=== PATIENT | male | born 1940 | race Caucasian/White ===

== ENCOUNTER 2016-09-28 01:44 | Emergency (ER) | payer MEDICARE ==
[2016-09-28 02:04] LABS: AUTOMATED NEUTROPHIL # 5.4 TH/MM3 (1.8-7.7); BASOPHIL # 0.1 TH/MM3 (0-0.2); BASOPHIL % 0.9 % (0.0-2.0); EOSINOPHIL # 0.2 TH/MM3 (0-0.4); EOSINOPHIL % 2.3 % (0.0-4.0); HEMATOCRIT 39.6 % (39.0-51.0); HEMO FLAGS DIFF FINAL; LYMPH % 17.3 % (9.0-44.0); LYMPHOCYTE # 1.3 TH/MM3 (1.0-4.8); MEAN CORPUSCULAR HGB CONC 33.7 % (32.0-36.0); MONO % 8.7 % (0.0-8.0); NEUT % 70.8 % (16.0-70.0); PLATELET COUNT 229 TH/MM3 (150-450); RED BLOOD COUNT 4.45 MIL/MM3 (4.50-5.90); RED CELL DISTRIBUTION WIDTH 14.7 % (11.6-17.2); WHITE BLOOD COUNT 7.6 TH/MM3 (4.0-11.0)
[2016-09-28 02:08] LABS: I-STAT POTASSIUM 3.6 MMOL/L (3.5-4.9)
--- NOTE | 2016-09-28 02:11 | RADRPT ---
EXAM DATE/TIME: 09/28/2016 01:38 [facility] COMPARISON: No previous studies available for comparison. INDICATIONS : Trauma alert. Patient woke up floor. Syncope. MEDICAL HISTORY : Unobtainable SURGICAL HISTORY : Unobtainable ENCOUNTER: Initial ACUITY: 1 day PAIN SCORE: Non-responsive. LOCATION: Bilateral chest FINDINGS: A single view of the chest demonstrates interstitial changes in the upper lungs. No confluent infiltr ate. Accounting for technique, heart size is upper limits of normal. Osseous structures are grossly i ntact although the lateral ribs in the left hemithorax are not included. CONCLUSION: 1. Interstitial changes in the apices are probably chronic. 2. No acute infiltrate or obvious fracture on this limited exam. Brando Carmichael MD on September 28, 2016 at 2:08 Board Certified Radiologist. This report was verified electronically.
--- NOTE | 2016-09-28 02:11 | RADRPT ---
EXAM DATE/TIME: 09/28/2016 01:38 [facility] COMPARISON: No previous studies available for comparison. INDICATIONS : Trauma alert. Patient woke up floor. Syncope. MEDICAL HISTORY : Unobtainable SURGICAL HISTORY : Unobtainable ENCOUNTER: Initial ACUITY: 1 day PAIN SCORE: Non-responsive. LOCATION: Left knee FINDINGS: Two view examination of the left knee demonstrates no evidence of fracture or dislocation. Bony mine ralization is normal. The suprapatellar soft tissues have a normal configuration. Atherosclerotic ca lcification of the regional vasculature. CONCLUSION: No acute fracture or effusion. Brando Carmichael MD on September 28, 2016 at 2:09 Board Certified Radiologist. This report was verified electronically.
--- NOTE | 2016-09-28 02:13 | RADRPT ---
EXAM DATE/TIME: 09/28/2016 01:38 [facility] COMPARISON: No previous studies available for comparison. INDICATIONS : Trauma alert. Patient woke up floor. Syncope. MEDICAL HISTORY : Unobtainable SURGICAL HISTORY : Unobtainable ENCOUNTER: Initial ACUITY: 1 day PAIN SCORE: Non-responsive. LOCATION: Bilateral pelvis FINDINGS: A single frontal view of the pelvis demonstrates no evidence of fracture. The bony pelvic ring is in tact. Bony mineralization is normal. The soft tissues are intact. Iliac stents bilaterally. CONCLUSION: No acute fracture. Brando Carmichael MD on September 28, 2016 at 2:10 Board Certified Radiologist. This report was verified electronically.
--- NOTE | 2016-09-28 02:15 | RADRPT ---
EXAM DATE/TIME: 09/28/2016 02:01 [facility] COMPARISON: No previous studies available for comparison. INDICATIONS : Trauma alert, unwitness fall. Found on ground RADIATION DOSE: 37.70 CTDIvol (mGy) MEDICAL HISTORY : unknown SURGICAL HISTORY : unknown ENCOUNTER: Initial ACUITY: 1 day PAIN SCALE: 0/10 LOCATION: cranial TECHNIQUE: Multiple contiguous axial images were obtained of the head. Using automated exposure control and adj ustment of the mA and/or kV according to patient size, radiation dose was kept as low as reasonably a chievable to obtain optimal diagnostic quality images. FINDINGS: CEREBRUM: The ventricles are normal for age. Symmetric, diffuse cortical atrophy. No evidence of midline shift , mass lesion, hemorrhage or acute infarction. No extra-axial fluid collections are seen. POSTERIOR FOSSA: The cerebellum and brainstem are intact. The 4th ventricle is midline. The cerebellopontine angle i s unremarkable. EXTRACRANIAL: The visualized portion of the orbits is intact. Mild chronic sinusitis of the ethmoid air cells SKULL: The calvaria is intact. No evidence of skull fracture. CONCLUSION: 1. Mild, diffuse cortical atrophy with no acute intracranial process, trauma or fracture. 2. Mild, chronic ethmoid sinusitis Brando Carmichael MD on September 28, 2016 at 2:12 Board Certified Radiologist. This report was verified electronically.
--- NOTE | 2016-09-28 02:20 | RADRPT ---
EXAM DATE/TIME: 09/28/2016 02:01 [facility] COMPARISON: No previous studies available for comparison. INDICATIONS : Trauma alert, unwitness fall. Found on ground RADIATION DOSE: 21.57 CTDIvol (mGy) MEDICAL HISTORY : unknown SURGICAL HISTORY : unknown ENCOUNTER: Initial ACUITY: 1 day PAIN SCALE: 0/10 LOCATION: neck TECHNIQUE: Volumetric scanning of the cervical spine was performed. Multiplanar reconstructions in the sagittal, coronal and oblique axial planes were performed. Using automated exposure control and adjustment o f the mA and/or kV according to patient size, radiation dose was kept as low as reasonably achievable to obtain optimal diagnostic quality images. FINDINGS: Sagittal and coronal reconstruction show multilevel degenerative disc disease with reversal of the lo rdotic curvature and loss of disc height at every cervical level. Uncovertebral ridging is most promi nent at C4-5 anteriorly. Minimal grade 1 retrolisthesis of C4 on 5. No fracture. Fibrotic changes wit h some pleural calcification in the apices. Detailed axial images are as follows: . C2-C3: Facet hypertrophy bilaterally, left greater than right. Narrowing of the neural foramina with possibl e compromise of the exiting C3 nerve roots.. C3-C4: Facet hypertrophy most prominent rightward. Associated foraminal narrowing. Spinal canal and left venancio ral foramina are adequate C4-C5: Uncovertebral ridging directed anteriorly. Spinal canal and neural foramina are patent C5-C6: Uncovertebral ridging predominantly anteriorly. Spinal canal and neural foramina are adequate C6-C7: Uncovertebral ridging predominantly anteriorly. Spinal canal and neural foramina are adequate C7-T1: The bony spinal canal is normal in size. No evidence of disc bulge or herniation. The neural forami na are bilaterally patent. CONCLUSION: 1. Multilevel degenerative disc disease with reversal of the normal lordotic curvature, uncovertebral ridging and facet hypertrophy as detailed above. 2. No fracture. 3. Biapical parenchymal fibrosis with pleural calcification. Brando Carmichael MD on September 28, 2016 at 2:13 Board Certified Radiologist. This report was verified electronically.
--- NOTE | 2016-09-28 02:23 | RADRPT ---
EXAM DATE/TIME: 09/28/2016 02:01 [facility] COMPARISON: No previous studies available for comparison. INDICATIONS : Trauma alert, unwitness fall. Found on ground RADIATION DOSE: 28.57 CTDIvol (mGy) MEDICAL HISTORY : unknown SURGICAL HISTORY : unknown ENCOUNTER: Initial ACUITY: 1 day PAIN SCORE: 0/10 LOCATION: facial TECHNIQUE: Volumetric scanning of the facial bones was performed. Using automated exposure control and adjustme nt of the mA and/or kV according to patient size, radiation dose was kept as low as reasonably achiev able to obtain optimal diagnostic quality images. FINDINGS: ORBITS: The orbital and infraorbital osseous structures are intact. The retroconal structures have a normal configuration. No radiopaque foreign bodies are seen. NASAL BONE: The nasal bone and maxillary spine are intact ZYGOMATIC ARCHES: Symmetric without evidence of fracture. SINUSES: Mild mucoperiosteal thickening in the ethmoid air cells. NASAL CAVITY: The nasal septum is intact and midline. The lacrimal ducts are intact. SOFT TISSUES: Small cephalhematoma over the frontal bone centrally. Air in the regional tissues suggests a penetrat ing injury or laceration. INTRACRANIAL: No intracranial air seen. CRIBIFORM PLATE: Grossly intact. CONCLUSION: 1. Small cephalhematoma over the frontal bone centrally with regional air suggesting penetrating trau ma or laceration. 2. Mild chronic sinusitis of the ethmoid air cells 3. Otherwise, no acute fracture. Brando Carmichael MD on September 28, 2016 at 2:19 Board Certified Radiologist. This report was verified electronically.
[2016-09-28 02:32] LABS: APTT (PATIENT) 34.5 SEC (24.3-30.1); INTERNATIONAL NORMALIZED RATIO 2.1 RATIO; PROTHROMBIN TIME - PATIENT 23.8 SEC (9.8-11.6)
--- NOTE | 2016-09-28 03:45 | PD ---
HPI Chief Complaint: Trauma (Alert) Time Seen by Provider: 01:45 Travel History International Travel<30 days: No Contact w/Intl Traveler<30days: No Traveled to known affect area: No History of Present Illness HPI Elderly white male presents to the ER brought in by EMS as a trauma alert, patient states that he had been drinking alcohol at home and last remembered watching TV at 10 PM, and woke up this morning in a pool of blood, has a laceration to his forehead. He did not have other complaints. EMS brought him in his a trauma alert secondary to GCS of 14. He lives alone and apparently had called EMS. Modifying Factors: None Associated Signs & Symptoms: Trauma alert, fall, forehead laceration, disorientation Risk Factors: Elderly PFSH Past Medical History Medical History: Unable to Obtain (altered mental status) Past Surgical History Surgical History: Unable to Obtain Allergies-Medications (Allergen,Severity, Reaction): Coded Allergies: No Known Allergies (Unverified , 09/28/16) Review of Systems ROS Limitations: Intoxication, Altered Mental Status Physical Exam Narrative GENERAL: Well-nourished, well-developed elderly white male patient in backboard and c-collar, awake, lethargic, mildly disoriented, GCS 14. SKIN: Warm and dry. HEAD: Normocephalic. 2 cm forehead laceration. EYES: No scleral icterus. No injection or drainage. NECK: C-collar, trachea midline. CARDIOVASCULAR: Regular rate and rhythm without murmurs, gallops, or rubs. CHEST: Nontender throughout without deformity or crepitance. No retractions or use of accessory muscles. RESPIRATORY: Breath sounds equal bilaterally. No accessory muscle use. GASTROINTESTINAL: Abdomen soft, non-tender, nondistended. Pelvis: Stable and nontender to palpation. MUSCULOSKELETAL: No cyanosis, or edema. BACK: Nontender without obvious deformity. No CVA tenderness. EXTREMITIES: No clubbing, cyanosis, or edema. No joint tenderness, effusion, or edema noted. Skin tears notable to the right elbow and right wrist. There is a 2 cm laceration to the left knee. NEUROLOGICAL: Awake and lethargic. Face is symmetrical. Motor and sensory grossly within normal limits. Five out of 5 muscle strength in all muscle groups. Slurred speech. Data Data Orders I-Stat Profile (09/28/16 01:46) I-Stat Creatinine (09/28/16 01:46) Complete Blood Count With Diff (09/28/16 01:46) Prothrombin Time / Inr (Pt) (09/28/16 01:46) Act Partial Throm Time (Ptt) (09/28/16 01:46) Type And Screen (09/28/16 01:46) Ct Brain W/O Iv Contrast(Rout) (09/28/16 01:46) Ct Cerv Spine W/O Contrast (09/28/16 01:46) Iv Access Insert/Monitor (09/28/16 01:46) Ecg Monitoring (09/28/16 01:46) Oximetry (09/28/16 01:46) Oxygen Administration (09/28/16 01:46) I-Stat Profile (09/28/16 01:50) I-Stat Creatinine (09/28/16 01:50) Complete Blood Count With Diff (09/28/16 01:50) Act Partial Throm Time (Ptt) (09/28/16 01:50) Chest, Single Ap (09/28/16 01:50) Pelvis, Ap Only (Routine) (09/28/16 01:50) Ct Facial Bones W/O Iv Cont (09/28/16 01:50) Knee, Ltd (1 Or 2vws) (09/28/16 ) Alcohol (Ethanol) (09/28/16 02:40) Collar [place] (09/28/16 ) Hydromorphone Pf Inj (Dilaudid Pf Inj) (09/28/16 04:15) Ondansetron Inj (Zofran Inj) (09/28/16 04:15) Labs Laboratory Tests Test 09/28/16 01:51 White Blood Count 7.6 TH/MM3 Red Blood Count 4.45 MIL/MM3 Hemoglobin 13.3 GM/DL Bedside Hemoglobin 13.9 G/DL Hematocrit 39.6 % Bedside Hematocrit 41.0 % Mean Corpuscular Volume 89.0 FL Mean Corpuscular Hemoglobin 30.0 PG Mean Corpuscular Hemoglobin 33.7 % Concent Red Cell Distribution Width 14.7 % Platelet Count 229 TH/MM3 Mean Platelet Volume 8.3 FL Neutrophils (%) (Auto) 70.8 % Lymphocytes (%) (Auto) 17.3 % Monocytes (%) (Auto) 8.7 % Eosinophils (%) (Auto) 2.3 % Basophils (%) (Auto) 0.9 % Neutrophils # (Auto) 5.4 TH/MM3 Lymphocytes # (Auto) 1.3 TH/MM3 Monocytes # (Auto) 0.7 TH/MM3 Eosinophils # (Auto) 0.2 TH/MM3 Basophils # (Auto) 0.1 TH/MM3 CBC Comment DIFF FINAL Differential Comment Prothrombin Time 23.8 SEC Prothromb Time International 2.1 RATIO Ratio Activated Partial 34.5 SEC Thromboplast Time Bedside Sodium 138 MMOL/L Bedside Potassium 3.6 MMOL/L Bedside Chloride 103 MMOL/L Bedside Blood Urea Nitrogen 14 MG/DL Bedside Creatinine 1.7 MG/DL Bedside Glucose 129 MG/DL Ethyl Alcohol Level 213 MG/DL Blood Type B POSITIVE Antibody Screen NEGATIVE MDM Medical Screen Exam Complete: Yes Emergency Medical Condition: Yes Medical Record Reviewed: Yes EKG Prior to Arrival: Yes Interpretation(s) Laboratory Tests Test 09/28/16 01:51 Red Blood Count 4.45 MIL/MM3 (4.50-5.90) Neutrophils (%) (Auto) 70.8 % (16.0-70.0) Monocytes (%) (Auto) 8.7 % (0.0-8.0) Prothrombin Time 23.8 SEC (9.8-11.6) Activated Partial 34.5 SEC Thromboplast Time (24.3-30.1) Bedside Creatinine 1.7 MG/DL (0.8-1.3) Bedside Glucose 129 MG/DL (60-95) Ethyl Alcohol Level 213 MG/DL (0-5) Last 24 hours Impressions Pelvis X-Ray 09/28/16149 Signed Impressions: Service Date/Time: Wednesday, September 28, 2016 01:38 - CONCLUSION: No acute fracture. Brando Carmichael MD Maxillofacial CT 09/28/16149 Signed Impressions: Service Date/Time: Wednesday, September 28, 2016 02:01 - CONCLUSION: 1. Small cephalhematoma over the frontal bone centrally with regional air suggesting penetrating trauma or laceration. 2. Mild chronic sinusitis of the ethmoid air cells 3. Otherwise, no acute fracture. Brando Carmichael MD Chest X-Ray 09/28/16149 Signed Impressions: Service Date/Time: Wednesday, September 28, 2016 01:38 - CONCLUSION: 1. Interstitial changes in the apices are probably chronic. 2. No acute infiltrate or obvious fracture on this limited exam. Brando Carmichael MD Head CT 09/28/16145 Signed Impressions: Service Date/Time: Wednesday, September 28, 2016 02:01 - CONCLUSION: 1. Mild, diffuse cortical atrophy with no acute intracranial process, trauma or fracture. 2. Mild, chronic ethmoid sinusitis Brando Carmichael MD Cervical Spine CT 09/28/16145 Signed Impressions: Service Date/Time: Wednesday, September 28, 2016 02:01 - CONCLUSION: 1. Multilevel degenerative disc disease with reversal of the normal lordotic curvature, uncovertebral ridging and facet hypertrophy as detailed above. 2. No fracture. 3. Biapical parenchymal fibrosis with pleural calcification. Brando Carmichael MD Knee X-Ray 09/28/16 0000 Signed Impressions: Service Date/Time: Wednesday, September 28, 2016 01:38 - CONCLUSION: No acute fracture or effusion. Brando Carmichael MD Differential Diagnosis Acute intracranial injuries versus fractures versus alcohol intoxication versus dehydration versus metabolic issues Narrative Course Case was initially discussed with Dr. Hall who would like me to evaluate the patient first. After evaluation, x-rays, and CAT scans, the case was once again discussed with him. CAT scans did not reveal any signs of acute injuries other than the laceration to her forehead and right knee. He states that the patient can sleep it off for alcohol intoxication at this point. To be observed in the ER. On reevaluation at 4:40 AM, the patient is awake, alert, oriented 3. At this point, patient's lacerations have been sutured in the ER and when care instructions been given by PA. My plan would be to release the patient with follow-up to primary care physician. Return for any worsening in symptoms as needed. Patient to be picked up by friend. The plan was discussed with the patient and he states understanding. Trauma Alert - Level Two Trauma Alert Level Two: Full trauma team activate, Patient evaluated, Trauma surgeon called Time Surgeon Called: 01:24 Diagnosis Diagnosis: Primary Impression: Trauma Additional Impressions: Forehead laceration Alcohol intoxication Knee laceration Disposition: DISCHARGE HOME Condition: Stable Elif Mccabe MD Sep 28, 2016 03:45
[2016-09-28] MEDS ORDERED: HYDROmorphone HCL PF 1 MG/ML VIAL IV PUSH ONE (04:15)
[2016-09-28] MEDS ORDERED: ONDANSETRON HCL 4 MG/2 ML VIAL IV PUSH ONE (04:15)
--- NOTE | 2016-09-28 04:32 | PD ---
Physical Exam Date Seen by Provider: Sep 28, 2016 Time Seen by Provider: 04:27 Narrative Skin: The patient has multiple lacerations. He has avulsion lacerations to the anterior forehead as well as the bridge of the nose. There is a skin avulsion to the right elbow superficial. Lastly there is a laceration over the left knee. This measures 3 cm. Neurovascular intact Data Data Orders I-Stat Profile (09/28/16 01:46) I-Stat Creatinine (09/28/16 01:46) Complete Blood Count With Diff (09/28/16 01:46) Prothrombin Time / Inr (Pt) (09/28/16 01:46) Act Partial Throm Time (Ptt) (09/28/16 01:46) Type And Screen (09/28/16 01:46) Ct Brain W/O Iv Contrast(Rout) (09/28/16 01:46) Ct Cerv Spine W/O Contrast (09/28/16 01:46) Iv Access Insert/Monitor (09/28/16 01:46) Ecg Monitoring (09/28/16 01:46) Oximetry (09/28/16 01:46) Oxygen Administration (09/28/16 01:46) I-Stat Profile (09/28/16 01:50) I-Stat Creatinine (09/28/16 01:50) Complete Blood Count With Diff (09/28/16 01:50) Act Partial Throm Time (Ptt) (09/28/16 01:50) Chest, Single Ap (09/28/16 01:50) Pelvis, Ap Only (Routine) (09/28/16 01:50) Ct Facial Bones W/O Iv Cont (09/28/16 01:50) Knee, Ltd (1 Or 2vws) (09/28/16 ) Alcohol (Ethanol) (09/28/16 02:40) Collar [place] (09/28/16 ) Hydromorphone Pf Inj (Dilaudid Pf Inj) (09/28/16 04:15) Ondansetron Inj (Zofran Inj) (09/28/16 04:15) Labs Laboratory Tests Test 09/28/16 01:51 White Blood Count 7.6 TH/MM3 Red Blood Count 4.45 MIL/MM3 Hemoglobin 13.3 GM/DL Bedside Hemoglobin 13.9 G/DL Hematocrit 39.6 % Bedside Hematocrit 41.0 % Mean Corpuscular Volume 89.0 FL Mean Corpuscular Hemoglobin 30.0 PG Mean Corpuscular Hemoglobin 33.7 % Concent Red Cell Distribution Width 14.7 % Platelet Count 229 TH/MM3 Mean Platelet Volume 8.3 FL Neutrophils (%) (Auto) 70.8 % Lymphocytes (%) (Auto) 17.3 % Monocytes (%) (Auto) 8.7 % Eosinophils (%) (Auto) 2.3 % Basophils (%) (Auto) 0.9 % Neutrophils # (Auto) 5.4 TH/MM3 Lymphocytes # (Auto) 1.3 TH/MM3 Monocytes # (Auto) 0.7 TH/MM3 Eosinophils # (Auto) 0.2 TH/MM3 Basophils # (Auto) 0.1 TH/MM3 CBC Comment DIFF FINAL Differential Comment Prothrombin Time 23.8 SEC Prothromb Time International 2.1 RATIO Ratio Activated Partial 34.5 SEC Thromboplast Time Bedside Sodium 138 MMOL/L Bedside Potassium 3.6 MMOL/L Bedside Chloride 103 MMOL/L Bedside Blood Urea Nitrogen 14 MG/DL Bedside Creatinine 1.7 MG/DL Bedside Glucose 129 MG/DL Ethyl Alcohol Level 213 MG/DL Blood Type B POSITIVE Antibody Screen NEGATIVE MDM Medical Record Reviewed: Yes Supervised Visit with MIKY: Yes Interpretation(s) Last 24 hours Impressions Pelvis X-Ray 09/28/16149 Signed Impressions: Service Date/Time: Wednesday, September 28, 2016 01:38 - CONCLUSION: No acute fracture. Brando Carmichael MD Maxillofacial CT 09/28/16149 Signed Impressions: Service Date/Time: Wednesday, September 28, 2016 02:01 - CONCLUSION: 1. Small cephalhematoma over the frontal bone centrally with regional air suggesting penetrating trauma or laceration. 2. Mild chronic sinusitis of the ethmoid air cells 3. Otherwise, no acute fracture. Brando Carmichael MD Chest X-Ray 09/28/16149 Signed Impressions: Service Date/Time: Wednesday, September 28, 2016 01:38 - CONCLUSION: 1. Interstitial changes in the apices are probably chronic. 2. No acute infiltrate or obvious fracture on this limited exam. Brando Carmichael MD Head CT 09/28/16 0146 Signed Impressions: Service Date/Time: Wednesday, September 28, 2016 02:01 - CONCLUSION: 1. Mild, diffuse cortical atrophy with no acute intracranial process, trauma or fracture. 2. Mild, chronic ethmoid sinusitis Brando Carmichael MD Cervical Spine CT 09/28/16 0146 Signed Impressions: Service Date/Time: Wednesday, September 28, 2016 02:01 - CONCLUSION: 1. Multilevel degenerative disc disease with reversal of the normal lordotic curvature, uncovertebral ridging and facet hypertrophy as detailed above. 2. No fracture. 3. Biapical parenchymal fibrosis with pleural calcification. Brando Carmichael MD Knee X-Ray 09/28/16 0000 Signed Impressions: Service Date/Time: Wednesday, September 28, 2016 01:38 - CONCLUSION: No acute fracture or effusion. Brando Carmichael MD Differential Diagnosis MDM: High Differential diagnoses: Fracture, sprain, strain, dislocation, contusion, neurovascular injury Narrative Course Patient's wounds are closed with Steri-Strips, Dermabond and sutures. Procedures Procedure Narrative Laceration: Right forearm. The wound is cleansed with Betadine and saline. The superficial skin avulsion is laid down anatomically and Steri-Stripped in place. No complications. There is an area of tissue loss. LACERATION LOCATION: Forehead LENGTH: 2 cm NUMBER OF STITCHES/SALOME: Not applicable REPAIR: The area of the laceration was prepped with Betadine and sterilely draped. The wound was copiously irrigated and explored without evidence of foreign body, tendon injury or neurovascular injury. The wound was closed using Dermabond. This was a simple single layer repair. A sterile dressing was applied. The patient was advised to keep the dressing clean and dry. Patient tolerated the procedure well. LACERATION LOCATION: Left knee LENGTH: 3 cm NUMBER OF STITCHES/SALOME: 5 REPAIR: The area of the laceration was prepped with Betadine and sterilely draped. The laceration was infiltrated with 1% lidocaine with epinephrine. The wound was copiously irrigated and explored without evidence of foreign body , tendon injury or neurovascular injury. The wound was closed using 4-0 proline. This was a simple single layer repair. A sterile dressing was applied. The patient was advised to keep the dressing clean and dry. Patient tolerated the procedure well. Diagnosis Primary Impression: Trauma Additional Impressions: Forehead laceration Alcohol intoxication Knee laceration Patient Instructions: General Instructions Additional Instruction: Rest. Ice pack tonight. Tylenol for pain. Dermabond instructions. Daily wound care with soap, water, Neosporin to urinate laceration Sutures out in 12-14 days. Sunscreen and mederma for 6 months. Return to the ER for any problems. Condition: Stable Min Jett Sep 28, 2016 04:32
[2016-09-28 08:00] VITALS: BP 152/80; PULSE 71; RESP 16; O2SAT 99
== END 2016-09-28 08:33 | disposition home or self-care (01) ==
LOC: EDBD 01:44 → NEPI 01:44 → NEPA 08:33
DX: S01.81XA Laceration without foreign body of other part of head, initial encounter (principal); S81.012A Laceration without foreign body, left knee, initial encounter; F10.129 Alcohol abuse with intoxication, unspecified; J32.9 Chronic sinusitis, unspecified; X58.XXXA Exposure to other specified factors, initial encounter; Y90.7 Blood alcohol level of 200-239 mg/100 ml
CPT/HCPCS: 12002; 12011; 70450; 70486; 71010; 72125; 72170; 73560; 80307; 82435; 82565; 82947; 84132; 84295; 84520; 85025; 85610; 85730; 86850; 86900; 86901; 96374; 96375; 99285; G0390; J1170; J2405; L0150; 90471; 99291